=== PATIENT | female | born 1955 | race Caucasian/White ===

== ENCOUNTER 2017-07-31 10:42 | Emergency (ER) | payer BC ==
[~2017-07-31] VITALS: Ht 170.2 cm; Wt 86.0 kg
[~2017-07-31 10:42] MED LIST: CHOL100027 PO; CIPR1TAB11 PO; CYAN500T PO; LSN/10125 PO; METR-163 PO; MULT-506 PO
[2017-07-31 10:51] VITALS: TEMP 36.7; Ht 170.2 cm; Wt 86.0 kg
[2017-07-31] MEDS: MoRPHine SULFATE 4 MG/ML 1 ML CARP\\VIAL IV PRN ×4 (11:04→15:20)
[2017-07-31] MEDS: ONDANSETRON INJ 2 MG/ML 2 ML VIAL IV PRN ×3 (11:04→15:20)
--- NOTE | 2017-07-31 11:06 | EMERGENCY ROOM VISIT NOTE ---
History Report prepared by Bernice: Shakira Sr Under the Supervision of: Dr. Vlad Macario M.D. First contact with patient: 10:47 Stated Complaint: BACK PAIN History of Present Illness The patient is a 62 year old female who presents to the Emergency Room with complaints of persistent back pain that began today. She currently rates her discomfort as a 6/10 in severity. The patient states that she was pulling a [place] tree when she felt her back "pop". She notes that the pain is worsened with movement. Per nursing staff, the patient received Fentanyl prior to arrival, which she notes helped to alleviate her pain. The patient denies falling, incontinence of her bladder or bowels, neck pain, or abdominal pain. She denies any history of back problems. Source of History: patient Onset: Today Position: back Timing: other (persistent) Modifying Factors (Worsening): movement Associated Symptoms: No neck pain, No abdominal pain, No urinary symptoms ( no incontinence ) Review of Systems All systems have been listed, reviewed, and are negative other than those previously mentioned. Please see Additional Medical History Sheet. Past Medical & Surgical Medical Problems: (1) Diverticulitis Colon (W/O Ment Of Hemorrhage) (2) Hypertension Nos Family History No pertinent family history Social History Smoking Status: Former Smoker Marital Status: Housing Status: lives with significant other Occupation Status: employed Current/Historical Medications Scheduled Hctz/Lisinopril (Lisinopril/Hctz 10/12.5 Mg), 1 TAB PO DAILY Scheduled PRN Ibuprofen Tab (Advil), 200 MG PO UD PRN for Pain Ketorolac Tromethamine (Toradol), 10 MG PO Q6 PRN for Pain Oxycodone/Acetaminophen 5MG/325MG (Percocet 5MG/325MG), 1-2 TABLETS PO Q4H PRN for Pain Allergies Coded Allergies: Codeine (Verified Allergy, Intermediate, nauseaous, 07/31/17) Lactose Intolerance (Verified Allergy, Unknown, Unknown, 07/31/17) Reported by PT. Sulfa Antibiotics (Unverified Allergy, Unknown, UNKNOWN, 07/31/17) Physical Exam Vital Signs Date Time Temp Pulse Resp B/P (MAP) Pulse Ox O2 Delivery O2 Flow Rate FiO2 07/31/17 13:56 75 18 108/65 95 Room Air 07/31/17 12:43 72 16 142/76 95 Room Air 07/31/17 10:51 36.7 80 16 152/86 94 Room Air Physical Exam GENERAL: Patient is in marked distressed. Patient awake, alert, oriented x 3. Patient follows commands. Patient does not appear toxic. Patient is adequately hydrated and well-nourished. SKIN: No erythema, pallor, cyanosis or rash NECK: Neck is subtle and nontender. HEENT: Normal head, pupils equal, reactive to light and accommodation. LUNGS: Clear to auscultation. No wheezes, no rales, no rhonchi. HEART: No murmurs. No gallops. No rubs ABDOMEN: No masses, no rebound, no hepatomegaly or splenomegaly. BACK: Patient has tenderness around L1 without deformity palpated. EXTREMITIES: No signs of trauma. No pedal or pretibial edema. No calf or thigh tenderness. Increased pain with leg raise, especially left. NEUROLOGIC: Cranial nerves II-XII within normal limits. No gross motor sensory function deficits. Motor and intact distally. Medical Decision & Procedures ER Provider Diagnostic Interpretation: Radiology results as stated below per my review and radiologist interpretation: LUMBAR SPINE 5 VIEWS CLINICAL HISTORY: Low back pain. Lifting injury. FINDINGS: 5 views of lumbar spine are correlated with abdominal CT dated 05/20/2014. The skeletal structures are osteopenic. There is a mild and age indeterminant superior endplate compression deformity of L1. No retropulsed fragments are identified. Vertebral body height is otherwise maintained throughout the lumbar spine. Alignment is preserved. The transverse and spinous processes appear intact. Mild lumbar levocurvature may be positional. There is no evidence of spondylolysis. The disc spaces are maintained. The visualized bony pelvis appears intact. There is a nonobstructed abdominal bowel gas pattern noting moderate to severe constipation. Phleboliths are observed in the pelvis. There is advanced atherosclerotic calcification of the abdominal aorta. IMPRESSION: 1. There is a mild and age indeterminant superior endplate compression deformity of L1. Correlate for point tenderness at this level. No retropulsed fragments are seen. 2. Vertebral body height is otherwise maintained throughout the lumbar spine. 3. Osteopenia. 4. Moderate to severe constipation. Electronically signed by: Lopez Merchant M.D. 07/31/2017 12:11 PM LUMBAR SPINE WITHOUT HISTORY: 62 years-old Female L1 compression fx? Severe low back pain with questioned L1 compression deformity COMPARISON: Lumbar spine radiographs of same day, CT abdomen and pelvis 05/20/2014 TECHNIQUE: Multiple axial CT images of the lumbar spine were obtained without contrast. A dose lowering technique was used consistent with the principals of [facility]. FINDINGS: 35% central endplate and 20% anterior endplate compression deformity of L1 is present with 4 mm retropulsion involving the superior aspect of the posterior endplate as seen on image 51 series 201. The posterior elements at this level are intact. This is technically age-indeterminate, however new from 05/20/2014 and is likely acute or subacute. No significant associated paraspinal or epidural hematoma identified. No high-grade central canal narrowing. No additional acute fracture or subluxation. The bones are mildly demineralized. Mild annular disc bulging and facet arthropathy is noted at L4-L5 and L5-S1 with ligamentum flavum redundancy. There is mild inferior neuroforaminal stenosis on the right at L5-S1. Colonic diverticulosis noted without diverticulitis. There is moderate to extensive atherosclerosis of the abdominal aorta with suggested intramural dilation of the left common iliac artery, 1.7 cm. IMPRESSION: 1. 20% anterior endplate compression deformity of L1 with 4 mm retropulsion involving the superior aspect of the posterior endplate is technically age indeterminate, however is new from comparison study 05/20/2014 suggesting acute or subacute etiology. No large paraspinal or epidural hematoma. No high-grade central canal or foraminal narrowing. 2. Mildly demineralized appearance of the bones. 3. No additional acute fracture or subluxation. 4. 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 The above report was generated using voice recognition software. It may contain grammatical, syntax or spelling errors. Electronically signed by: Esau Cedeño M.D. 07/31/2017 2:32 PM Medications Administered Medications (Trade) Dose Ordered Sig/Nia Route Start Time Stop Time Status Last Admin Dose Admin Morphine Sulfate (MoRPHine SULFATE INJ) 4 mg Q1H PRN IV 07/31/17 11:00 08/14/17 10:59 07/31/17 15:20 4 MG Ondansetron HCl (Zofran Inj) 4 mg Q1HWA PRN IV 07/31/17 11:00 08/30/17 10:59 07/31/17 15:20 4 MG Ketorolac Tromethamine (Toradol Inj) 30 mg NOW STAT IV 07/31/17 15:06 07/31/17 15:07 DC 07/31/17 15:20 30 MG Laboratory results as stated above per my review. ED Course 1048: Past medical records reviewed. The patient was evaluated in room C3. A complete history and physical examination was performed. 1100: Ordered Morphine Sulfate 4mg IV and Ondansetron HCL 4mg IV. 1333: I reevaluated the patient and she is resting comfortably. I discussed the exam findings with her thus far. She is going to have a CT scan. 1457: I discussed the exam findings with Dr. Nguyen, Orthopedics. He recommended that the patient follow up with him tomorrow. She has an appointment to be further evaluated by her tomorrow at 0715. 1500: I reevaluated the patient and she was resting comfortably. I discussed the exam findings and I discussed the treatment. She verbalized complete agreement of the treatment plan. The patient is ready to go home. 1506: ordered Toradol Inj 30 mg IV. Medical Decision Nurses notes reviewed. Medical history sheet reviewed. Differential diagnosis includes but is not limited to: Ruptured Nucleus Pulposus, Muscle strain/spasm, Fracture, Cauda Equina. Lumbar spine x-rays were performed revealing a questionable L1 compression fracture. CT followed revealing the same fracture. This is the site at which the patient is tender. The patient was also found to have some constipation. She has a history of the same. The patient takes milk of magnesia for that. Patient has no neurologic deficits. I believe that she is safe to return home. I did discuss the case with Dr. gNuyen. He will see the patient tomorrow in his office. Medication Reconcilliation Current Medication List: was personally reviewed by me Blood Pressure Screening Patient's blood pressure: Normal blood pressure Blood pressure disposition: Did not require urgent referral Consults Time Called: 1454 Consulting Physician: Dr. Nguyen, Orthapedics Returned Call: [phone] I discussed the exam findings with Dr. Nguyen, Orthopedics. He recommended that the patient follow up with him tomorrow. She has an appointment to be further evaluated by her tomorrow at 0715. Impression Primary Impression: Compression fracture of L1 lumbar vertebra Scribe Attestation The scribe's documentation has been prepared under my direction and personally reviewed by me in its entirety. I confirm that the note above accurately reflects all work, treatment, procedures, and medical decision making performed by me. Departure Information Prescriptions Oxycodone/Acetaminophen 5MG/325MG (PERCOCET 5MG/325MG) Tab 1-2 TABLETS PO Q4H Y for Pain, #20 TAB Prov: Vlad Macario M.D. 07/31/17 Ketorolac Tromethamine (TORADOL) 10 Mg Tab 10 MG PO Q6 Y for Pain, #20 TAB Prov: Vlad Macario M.D. 07/31/17 Referrals Bhanu Francisco M.D. (PCP) Forms HOME CARE DOCUMENTATION FORM, IMPORTANT VISIT INFORMATION, Work Instructions Additional Instructions 1-2 Percocet every 4 hours as needed for severe pain. Do not drive or operate machinery while taking Percocet. One Toradol every 6 hours as needed for moderate pain. Follow-up with Dr. Nguyen tomorrow at 07:50 am
--- NOTE | 2017-07-31 12:12 | DIAGNOSTIC IMAGING REPORT ---
LUMBAR SPINE 5 VIEWS CLINICAL HISTORY: Low back pain. Lifting injury. FINDINGS: 5 views of lumbar spine are correlated with abdominal CT dated 05/20/2014. The skeletal structures are osteopenic. There is a mild and age indeterminant superior endplate compression deformity of L1. No retropulsed fragments are identified. Vertebral body height is otherwise maintained throughout the lumbar spine. Alignment is preserved. The transverse and spinous processes appear intact. Mild lumbar levocurvature may be positional. There is no evidence of spondylolysis. The disc spaces are maintained. The visualized bony pelvis appears intact. There is a nonobstructed abdominal bowel gas pattern noting moderate to severe constipation. Phleboliths are observed in the pelvis. There is advanced atherosclerotic calcification of the abdominal aorta. IMPRESSION: 1. There is a mild and age indeterminant superior endplate compression deformity of L1. Correlate for point tenderness at this level. No retropulsed fragments are seen. 2. Vertebral body height is otherwise maintained throughout the lumbar spine. 3. Osteopenia. 4. Moderate to severe constipation. Electronically signed by: Lopez Merchant M.D. 07/31/2017 12:11 PM Dictated Date/Time: 07/31/2017 12:09 PM
[2017-07-31] MEDS ORDERED: IBUP-103 PO (12:35)
--- NOTE | 2017-07-31 14:33 | DIAGNOSTIC IMAGING REPORT ---
LUMBAR SPINE WITHOUT HISTORY: 62 years-old Female L1 compression fx? Severe low back pain with questioned L1 compression deformity COMPARISON: Lumbar spine radiographs of same day, CT abdomen and pelvis 05/20/2014 TECHNIQUE: Multiple axial CT images of the lumbar spine were obtained without contrast. A dose lowering technique was used consistent with the principals of [facility]. FINDINGS: 35% central endplate and 20% anterior endplate compression deformity of L1 is present with 4 mm retropulsion involving the superior aspect of the posterior endplate as seen on image 51 series 201. The posterior elements at this level are intact. This is technically age-indeterminate, however new from 05/20/2014 and is likely acute or subacute. No significant associated paraspinal or epidural hematoma identified. No high-grade central canal narrowing. No additional acute fracture or subluxation. The bones are mildly demineralized. Mild annular disc bulging and facet arthropathy is noted at L4-L5 and L5-S1 with ligamentum flavum redundancy. There is mild inferior neuroforaminal stenosis on the right at L5-S1. Colonic diverticulosis noted without diverticulitis. There is moderate to extensive atherosclerosis of the abdominal aorta with suggested intramural dilation of the left common iliac artery, 1.7 cm. IMPRESSION: 1. 20% anterior endplate compression deformity of L1 with 4 mm retropulsion involving the superior aspect of the posterior endplate is technically age indeterminate, however is new from comparison study 05/20/2014 suggesting acute or subacute etiology. No large paraspinal or epidural hematoma. No high-grade central canal or foraminal narrowing. 2. Mildly demineralized appearance of the bones. 3. No additional acute fracture or subluxation. 4. 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 The above report was generated using voice recognition software. It may contain grammatical, syntax or spelling errors. Electronically signed by: Esau Cedeño M.D. 07/31/2017 2:32 PM Dictated Date/Time: 07/31/2017 2:24 PM
[2017-07-31] MEDS ORDERED: KETOROLAC TROMETHAMINE 30 MG/ML VIAL IV STA (15:06)
[2017-07-31] MEDS ORDERED: KETO10TA PO (15:11)
[2017-07-31] MEDS ORDERED: OXYC-57 PO (15:11)
[2017-07-31 16:21] VITALS: BP 115/76; PULSE 88; O2SAT 98
== END 2017-07-31 16:22 | disposition home or self-care (01) ==
LOC: EDBD 10:42 → C.EDC 10:44
DX: S32.019A Unspecified fracture of first lumbar vertebra, initial encounter for closed fracture (principal); X58.XXXA Exposure to other specified factors, initial encounter; I10 Essential (primary) hypertension; K57.30 Diverticulosis of large intestine without perforation or abscess without bleeding; Z87.891 Personal history of nicotine dependence; Z79.899 Other long term (current) drug therapy; Z88.2 Allergy status to sulfonamides; Z88.5 Allergy status to narcotic agent; Z91.011 Allergy to milk products